=== PATIENT | female | born 1970 | race Caucasian/White ===

== ENCOUNTER 2019-07-05 14:59 | Outpatient (CLI) | payer OTHER ==
[~2019-07-05 14:59] MED LIST: HYZAAR 100-121 UDTAB; TYLENOL-CODEINE1 TAB PO
== END 2019-07-05 15:07 | disposition home or self-care (01) ==
LOC: SONOGRAMA 14:59
DX: N61.1 Abscess of the breast and nipple (principal)

== ENCOUNTER 2019-07-14 08:40 | Inpatient (IN) | payer OTHER ==
[~2019-07-14] VITALS: Ht 162.6 cm; Wt 73.5 kg
== END 2019-07-17 10:24 | disposition home or self-care (01) | DRG 585 ==
LOC: ER 08:40 → SURH 10:53
PROVIDERS: ADMIT Specialist
PROC: 0HB5XZX Excision of Chest Skin, External Approach, Diagnostic (ICD-10-PCS; 2019-07-15)
PROC: 0H9U0ZX Drainage of Left Breast, Open Approach, Diagnostic (ICD-10-PCS; principal; 2019-07-15 11:00)
DX: N61.1 Abscess of the breast and nipple (principal); I10 Essential (primary) hypertension

== ENCOUNTER 2020-06-05 10:12 | Outpatient (CLI) | payer OTHER | END 2020-06-05 12:32 | disposition home or self-care (01) | LOC: MAMO-SONO 10:12 | PROVIDERS: ATTEND Specialist | DX: N60.02 Solitary cyst of left breast (principal); N60.01 Solitary cyst of right breast; R92.8 Other abnormal and inconclusive findings on diagnostic imaging of breast; R92.2 Inconclusive mammogram; N64.59 Other signs and symptoms in breast ==

== ENCOUNTER 2021-06-18 10:48 | Outpatient (CLI) | payer OTHER | END 2021-06-18 11:05 | disposition home or self-care (01) | LOC: MAMO-SONO 10:48 | PROVIDERS: ATTEND Specialist | DX: N60.11 Diffuse cystic mastopathy of right breast (principal); N60.12 Diffuse cystic mastopathy of left breast ==

== ENCOUNTER 2022-06-26 07:52 | Outpatient (CLI) | payer OTHER | END 2022-06-26 08:16 | disposition home or self-care (01) | LOC: MAMO-SONO 07:52 | PROVIDERS: ATTEND Specialist | DX: N64.52 Nipple discharge (principal); D24.1 Benign neoplasm of right breast; D24.2 Benign neoplasm of left breast ==